=== PATIENT | female | born 1965 | race American Indian/Alaskan Native ===

== ENCOUNTER 2024-09-11 10:25 | Emergency (ER) | payer MEDICAID ==
[2024-09-11 10:54] LABS: BASE EXCESS ARTERIAL -0.6 mm/L; BICARBONATE,ARTERIAL 21.6 mmol/L (22.0-26.0); CARBOXYHEMOGLOBIN 1.6 % (0.0-1.6); METHEMOGLOBIN 0.7 %; O2 SATURATION ARTERIAL 96.3 % (95.0-98.0); OXYHEMOGLOBIN 94.1 %; PCO2 ARTERIAL 29.9 mmHg (35.0-42.0); PO2 ARTERIAL 88.4 mmHg (75.0-100.0); TOTAL HEMOGLOBIN 13.1 g/dL (12.0-16.0)
[2024-09-11] MEDS: Sodium Chloride 0.9% 1,000 ML IV ONE (10:54)
[2024-09-11] MEDS: methylPREDNISolone Sodium Succinate 125 MG/2 ML SDV IVPUSH ONE (10:54)
[2024-09-11] MEDS: Levalbuterol HCl 1.25 MG/3 ML Neb NEB ONE (10:54)
[2024-09-11 11:04] LABS: BASOPHILS PERCENT AUTO 0.2 % (0.1-1.3); EOSINOPHILS PERCENT AUTO 0.1 % (0.0-5.4); HEMATOCRIT 38.6 % (34.3-46.0); HEMOGLOBIN 13.1 g/dL (11.2-15.5); IMMATURE GRAN ABSOLUTE AUTO 0.06 K/uL (0.00-0.23); IMMATURE GRAN PERCENT AUTO 0.5 % (0.0-0.7); LYMPHOCYTES ABSOLUTE AUTO 0.83 K/uL (0.8-3.3); LYMPHOCYTES PERCENT AUTO 7.2 % (11.4-47.7); MEAN CORPUSCULAR HEMOGLOBIN 31.6 pg (31.6-35.5); MEAN CORPUSCULAR HGB CONC 33.9 g/dL (31.6-35.5); MEAN CORPUSCULAR VOLUME 93.2 fL (81.4-99.0); MONOCYTES ABSOLUTE AUTO 0.92 K/uL (0.20-0.90); NEUTROPHILS ABSOLUTE AUTO 9.65 K/uL (1.0-7.6); PLATELET COUNT,PLT 185 K/uL (130-375); RED BLOOD CELL COUNT 4.14 M/uL (3.77-5.24); WHITE BLOOD CELL COUNT,WBC 11.5 K/uL (3.2-11.0)
[2024-09-11 11:09] LABS: BASOPHILS ABSOLUTE AUTO 0.02 K/uL (0.00-0.10); EOSINOPHILS ABSOLUTE AUTO 0.01 K/uL (0.00-0.40)
[2024-09-11 11:21] LABS: LACTIC ACID 3.1 mmol/L (0.4-2.0)
[2024-09-11 11:28] LABS: A/G RATIO 0.9 (1.2-2.2); ALANINE AMINOTRANSFERASE,ALT 808 U/L (12-78); ALBUMIN 2.9 g/dL (3.4-5.0); ALKALINE PHOSPHATASE 128 U/L (46-116); ANION GAP 16.3 mmol/L (5.0-14.0); ASPARTATE AMNIOTRANSFERASE,AST 1579 U/L (15-37); BILIRUBIN TOTAL 1.7 mg/dL (0.2-1.0); BLOOD UREA NITROGEN,BUN 18 mg/dL (7-18); CARBON DIOXIDE,CO2 24 mmol/L (21-32); CHLORIDE,CL 101 mmol/L (100-108); CREATININE 0.9 mg/dL (0.6-1.0); EST CRCL DRUG DOSING (CG) 52.69 mL/min; ESTIMATED GFR 74 mL/min (>60); GLUCOSE RANDOM 114 mg/dL (74-106); POTASSIUM,K 3.3 mmol/L (3.6-5.2); PROTEIN TOTAL,TP 6.3 g/dL (6.4-8.2); SODIUM,NA 138 mmol/L (140-148)
[2024-09-11 11:35] LABS: CORONAVIRUS COVID-19 NAA NEGATIVE (NEGATIVE); INFLUENZA A NAA NEGATIVE (NEGATIVE); INFLUENZA B NAA NEGATIVE (NEGATIVE); RESPIRATORY SYNCYTIAL VIR NAA NEGATIVE (NEGATIVE)
[2024-09-11] MEDS ORDERED: Azithromycin 500 MG in Sodium Chloride 0.9% 250 ML IV ONE (11:40)
[2024-09-11] MEDS: cefTRIAXone 2 GM in Sodium Chloride 0.9% 50 ML IV ONE (11:57)
[2024-09-11] MEDS: Aspirin 81 MG Tab.Chew PO ONE (11:57)
[2024-09-11] MEDS: Iopamidol 755 Mg/ML 100 ML Bottle IV SCH (12:10)
[2024-09-11] MEDS: Sodium Chloride 0.9% 100 ML IV SCH (12:10)
[2024-09-11] MEDS: Sodium Chloride 0.9% 500 ML IV ONE (12:27)
[2024-09-11 12:46] LABS: BASE EXCESS ARTERIAL -2.8 mm/L; BICARBONATE,ARTERIAL 19.8 mmol/L (22.0-26.0); CARBOXYHEMOGLOBIN 1.5 % (0.0-1.6); METHEMOGLOBIN 0.7 %; O2 SATURATION ARTERIAL 96.2 % (95.0-98.0); OXYHEMOGLOBIN 94.1 %; PCO2 ARTERIAL 29.5 mmHg (35.0-42.0); PO2 ARTERIAL 89.5 mmHg (75.0-100.0); TOTAL HEMOGLOBIN 12.6 g/dL (12.0-16.0)
[2024-09-11] MEDS ORDERED: Heparin Sodium 5,000 Units/ML Vial IVPUSH ONE (12:50)
[2024-09-11] MEDS: Heparin Sodium 5,000 Units/ML Vial IV ONE (13:47)
[2024-09-11] MEDS: Heparin Sodium/D5W 25,000 UNITS/500 ML BAG IV SCH (13:48)
[2024-09-11] MEDS: Furosemide 40 MG/4 ML VIAL IVPUSH ONE (13:50)
[2024-09-11] MEDS: LORazepam 2 MG/ML SDV IVPUSH ONE (14:43)
[2024-09-15 20:17] LABS: HEPATITIS A ANTIBODY, IGM Negative (Negative); HEPATITIS B CORE ANTIBODY, IGM Negative (Negative); HEPATITIS B SURFACE ANTIGEN Negative (Negative); HEPATITIS C AB CIA INTERP Negative (Negative); HEPATITIS C ANTIBODY CIA INDEX 0.11 IV
== END 2024-09-11 14:55 ==
LOC: JP.ED 10:25
DX: J90 Pleural effusion, not elsewhere classified (principal); I50.9 Heart failure, unspecified; I51.3 Intracardiac thrombosis, not elsewhere classified; R94.5 Abnormal results of liver function studies; F17.210 Nicotine dependence, cigarettes, uncomplicated; Z79.51 Long term (current) use of inhaled steroids; Z79.899 Other long term (current) drug therapy
CPT/HCPCS: 0241U; 36415; 36600; 71045; 71275; 74177; 80053; 80074; 82803; 83605; 83880; 84484; 85025; 85379; 85730; 87040; 93005; 96361; 96365; 96367; 96374; 96375; 99285; A9270; J0696; J1644; J2060; J2919; J7030; J7040; J7612; Q9967; J1938

== ENCOUNTER 2024-11-13 10:26 | Emergency (ER) | payer MEDICAID | END 2024-11-13 10:40 | disposition left against medical advice (07) | LOC: JP.ED 10:26 | DX: Z53.21 Procedure and treatment not carried out due to patient leaving prior to being seen by health care provider (principal) ==